=== PATIENT | male | born 1975 | race Caucasian/White ===

== ENCOUNTER 2016-02-11 16:24 | Outpatient (CLI) | payer OTHER | END 2016-02-11 16:25 | disposition home or self-care (01) | DX: M19.071 Primary osteoarthritis, right ankle and foot (principal); M67.472 Ganglion, left ankle and foot ==

== ENCOUNTER 2016-08-09 16:27 | Outpatient (CLI) | payer OTHER ==
--- NOTE | 2016-08-10 18:48 | MRI Report ---
EXAM: RIGHT MIDFOOT MRI WITHOUT CONTRAST EXAM DATE: 08/09/2016 06:28 PM. CLINICAL HISTORY: Right foot pain after jumping over a fence in January 2016. COMPARISON: 02/11/2016. TECHNIQUE: Multiplanar, multisequence T1-weighted and fluid-sensitive sequences of the midfoot withou t contrast. Other: None. FINDINGS: Bones: There is some persistent edema in the medial portion of the navicular. Articular Cartilage: Unremarkable. Ligaments: The visualized intertarsal, intermetatarsal, and tarsometatarsal ligaments are intact. Thi s includes the Lisfranc ligament. The visualized collateral ligaments are intact. Tendons: Some edema surrounds the tibialis posterior tendon insertion on the navicular. Musculature: No edema or fatty atrophy. Other: No effusions. The visualized portion of the tarsal tunnel is unremarkable. No intermetatarsal bursitis. The subcutaneous tissues are unremarkable. IMPRESSION: Edema in the medial portion of the navicular could represent trauma or be secondary to te ndinosis of the distal tibialis posterior tendon. [facility]CUL[facility] Referring Provider Line: [phone] SITE ID: [id number]
== END 2016-08-09 16:28 | disposition home or self-care (01) ==
LOC: DI 16:27
PROVIDERS: ATTEND Orthopaedic Surgery
DX: M79.671 Pain in right foot (principal); R60.0 Localized edema

== ENCOUNTER 2017-07-05 09:09 | Emergency (ER) | payer OTHER ==
[2017-07-05 10:11] LABS: BASOPHILS # (AUTO) 0.1 10^3/uL (0.0-0.1); BASOPHILS % (AUTO) 1.1 %; EOSINOPHILS # (AUTO) 0.2 10^3/uL (0.0-0.7); EOSINOPHILS % (AUTO) 2.7 %; HGB - HEMOGLOBIN 14.4 g/dL (14.0-18.0); LYMPHOCYTES # (AUTO) 1.1 10^3/uL (1.5-3.5); LYMPHOCYTES % (AUTO) 19.4 %; MEAN CORPUSCULAR HEMOGLOBIN 30.4 pg (27.0-31.0); MEAN CORPUSCULAR HGB CONC 34.6 g/dL (32.0-36.0); MEAN CORPUSCULAR VOLUME 87.6 fL (80.0-94.0); MEAN PLATELET VOLUME 7.5 fL (7.4-11.4); MONOCYTES # (AUTO) 0.5 10^3/uL (0.0-1.0); MONOCYTES % (AUTO) 8.6 %; NEUTROPHILS % (AUTO) 68.2 %; PLT - PLATELET COUNT 213 10^3/uL (130-450); RED BLOOD COUNT 4.74 10^6/uL (4.70-6.10); RED CELL DISTRIBUTION WIDTH 13.3 % (12.0-15.0); WHITE BLOOD COUNT 5.9 x10^3/uL (4.8-10.8)
[2017-07-05 10:24] LABS: ALBUMIN 4.2 g/dL (3.2-5.5); ALBUMIN/GLOBULIN RATIO 1.3 (1.0-2.2); BILIRUBIN,TOTAL 0.9 mg/dL (0.2-1.0); CALCIUM 9.1 mg/dL (8.5-10.3); CREATININE 0.7 mg/dL (0.6-1.2); TOTAL PROTEIN 7.5 g/dL (6.7-8.2)
--- NOTE | 2017-07-05 10:45 | XRAY Report ---
EXAM: CHEST RADIOGRAPHY EXAM DATE: 07/05/2017 10:39 AM. CLINICAL HISTORY: Chest pain. COMPARISON: None. TECHNIQUE: 2 views. FINDINGS: Lungs/Pleura: No focal opacities evident. No pleural effusion. No pneumothorax. Normal volumes. Mediastinum: Heart and mediastinal contours are unremarkable. Other: None. IMPRESSION: Normal 2-view chest radiography. [facility] Referring Provider Line: [phone] SITE ID: [id number]
--- NOTE | 2017-07-05 10:45 | XRAY Preliminary Report ---
Exam: XR CHEST 2 VIEW X-RAY IMPRESSION: Normal 2-view chest radiography. [facility] SITE ID: [id number]
--- NOTE | 2017-07-05 11:07 | ED Physician Documentation ---
History of Present Illness - Stated complaint Stated Complaint: CHEST PAIN - Chief complaint Chief Complaint: General - Additonal information Additional information: hx from pt [place] mal;e to ER with CC L ant L shoulder chest pain constant for 2 months not worsened by exertion occ SOA as well no travel or surgery or leg swelling no fhx CAD has not been seen at [facility] for same last night had some rapid palp and inc level of FILM MASKER so came to ER Review of Systems Constitutional: denies: Fever, Chills Cardiac: reports: Chest pain / pressure, Palpitations Respiratory: reports: Dyspnea. denies: Cough GI: denies: Abdominal Pain, Nausea, Vomiting Musculoskeletal: denies: Neck pain, Back pain, Extremity pain, Extremity swelling Endocrine: denies: Easy bruising / bleeding Immunocompromised: denies: Immunocompromised PD PAST MEDICAL HISTORY - Past Medical History Past Medical History: Yes Cardiovascular: None Respiratory: None Endocrine/Autoimmune: None GI: GERD : None HEENT: None Psych: None Musculoskeletal: Other Derm: None - Past Surgical History Past Surgical History: Yes General: Other Ortho: Shoulder arthroplasty HEENT: Tonsil/Adenoidectomy - Present Medications Home Medications: Ambulatory Orders Medication Instructions Recorded Confirmed Sertraline [Zoloft] 25 mg PO .FREQ 11/24/15 HYDROcod/ACETAM 5/325 [[place] 5/325] 1 - 2 ea PO Q6H PRN #7 tablet 12/07/15 diazePAM [Diazepam] 1 tab PO .FREQ PRN 12/07/15 12/07/15 Naproxen 500 mg PO BIDWM PRN #20 tablet 07/05/17 - Allergies Allergies/Adverse Reactions: Allergies Allergy/AdvReac Type Severity Reaction Status Date / Time No Known Drug Allergies Allergy Verified 12/07/15 14:46 - Social History Does the pt smoke?: No Smoking Status: Never smoker Does the pt drink ETOH?: Yes Does the pt have substance abuse?: No - Immunizations Immunizations are current?: Yes - POLST Patient has POLST: No PD ED PE NORMAL - Vitals Vital signs reviewed: Yes - General General: Alert and oriented X 3 - HEENT HEENT: Atraumatic - Neck Neck: Supple, no meningeal sign - Cardiac Cardiac: RRR - Respiratory Respiratory: No respiratory distress, Clear bilaterally - Abdomen Abdomen: Soft, Non tender - Derm Derm: Normal color - Extremities Extremities: No deformity, No edema, No calf tenderness / cord - Neuro Neuro: Alert and oriented X 3 Results - Vitals Vitals: Vital Signs - 24 hr 07/05/17 07/05/17 07/05/17 09:15 11:29 13:16 Temperature 36.7 C Heart Rate 88 76 80 Respiratory 16 14 16 Rate Blood Pressure 143/91 H 125/84 H 129/68 O2 Saturation 96 97 99 Oxygen O2 Source Room air - EKG (time done) 0925 Rate: Rate (enter#) (81) Rhythm: NSR Intervals: Normal LA QRS: Normal Ischemia: Normal ST segments - Labs Labs: Laboratory Tests 07/05/17 07/05/17 07/05/17 10:07 10:07 10:07 WBC 5.9 RBC 4.74 Hgb 14.4 Hct 41.6 L MCV 87.6 MCH 30.4 MCHC 34.6 RDW 13.3 Plt Count 213 MPV 7.5 Neut # 4.0 Lymph # 1.1 L Clinch # 0.5 Eos # 0.2 Baso # 0.1 Absolute Nucleated RBC 0.00 Nucleated RBC % 0.0 Sodium 136 Potassium 4.3 Chloride 101 Carbon Dioxide 26 Anion Gap 9.0 BUN 18 Creatinine 0.7 Estimated GFR (MDRD) 123 Glucose 111 H Calcium 9.1 Total Bilirubin 0.9 AST 31 ALT 49 Alkaline Phosphatase 105 Troponin I < 0.04 Total Protein 7.5 Albumin 4.2 Globulin 3.3 Albumin/Globulin Ratio 1.3 Lipase 23 - Rads (name of study) CTPA Radiology: See rad report (neg) PD MEDICAL DECISION MAKING - ED course ED course: PERC negative in ER - except that pt reports fast palp at home will CTA Departure - Departure Disposition: 01 Home, Self Care Clinical Impression: Chest pain Condition: Good Instructions: ED Chest Pain Atypical [place] Cause Follow-Up: [facility] [Provider Group] Prescriptions: Naproxen 500 mg PO BIDWM PRN #20 tablet PRN Reason: Pain Comments: Your EKG and blood work were reassuring this is not a heart attack The xray and CT scan do not show an aneurysm or blood clot in your lungs - no a collapsed lung or fluid around your heart or lungs. I think it is safe for you to go home but you will need to follow up with [employer] for further testing not available in the ER - I would recommend an ultrasound of your heart (echocardiogram), a wear at home heart monitor and perhaps a stress test. Would recommend to PT or deployment until cleared by [facility]
[2017-07-05] MEDS ORDERED: IOPAMIDOL-300 100 ML VIAL ONE (13:09)
[2017-07-05] MEDS ORDERED: IOPAMIDOL-300 100 ML VIAL IVP ONE (13:41)
--- NOTE | 2017-07-05 13:44 | CT Report ---
EXAM: CT ANGIOGRAM CHEST EXAM DATE: 07/05/2017 01:21 PM. CLINICAL HISTORY: Chest pain. Palpitations. COMPARISON: Radiograph today. TECHNIQUE: Routine helical imaging was performed through the chest in the pulmonary arterial phase. I V Contrast: 60 cc Isovue-300. Reconstructions: Coronal 3-D MIP reconstructions.Sagittal and coronal. In accordance with CT protocol optimization, one or more of the following dose reduction techniques w ere utilized for this exam: automated exposure control, adjustment of mA and/or KV based on patient s ize, or use of iterative reconstructive technique. FINDINGS: Pulmonary Arteries: Diagnostic quality: Adequate through the segmental arteries. No evidence for acute or chronic pulmona ry emboli. Heart: RV/LV is within normal limits. There is no interventricular septal bowing. There is no reflux of contrast material in the IVC. Lungs/Pleura: No consolidation, nodules, or edema. No effusions or pneumothorax. Mediastinum: No lymphadenopathy. Esophagus and thyroid gland are unremarkable. Thoracic Aorta: Unremarkable. No dissection. Upper Abdomen: Mild fatty infiltration of the liver with fatty sparing at the gallbladder fossa. Other: None. IMPRESSION: Normal pulmonary CT angiogram. No pulmonary emboli. [facility] Referring Provider Line: [phone] SITE ID: [id number]
--- NOTE | 2017-07-05 13:44 | CT Preliminary Report ---
Exam: CT CHEST ANGIO (PE) IMPRESSION: Normal pulmonary CT angiogram. No pulmonary emboli. [facility] SITE ID: [id number]
[2017-07-05 14:24] VITALS: BP 113/78
== END 2017-07-05 14:24 | disposition home or self-care (01) ==
LOC: ED 09:09
DX: R07.9 Chest pain, unspecified (principal); R06.00 Dyspnea, unspecified; K21.9 Gastro-esophageal reflux disease without esophagitis
CPT/HCPCS: 36415; 71046; 71275; 80053; 83690; 84484; 85025; 93005; 99283; 99284; Q9967

== ENCOUNTER 2017-09-13 15:53 | Emergency (ER) | payer OTHER ==
[2017-09-13 15:59] VITALS: BP 141/85
--- NOTE | 2017-09-13 19:34 | ED Physician Documentation ---
History of Present Illness - Stated complaint Stated Complaint: WET CAST - Chief complaint Chief Complaint: General - Additonal information Additional information: hx from pt 42 male s.p foot reconstructive surgery recently at [place] has a splint on it got wet dc instructions advise to come to ED for cast change as wet skin may break down and lead to infection Review of Systems Musculoskeletal: reports: Other (cast wet) PD PAST MEDICAL HISTORY - Past Medical History Past Medical History: No Cardiovascular: None Respiratory: None Endocrine/Autoimmune: None GI: GERD : None HEENT: None Psych: None Musculoskeletal: None Derm: None - Past Surgical History Past Surgical History: Yes General: Other Ortho: Shoulder arthroplasty HEENT: Tonsil/Adenoidectomy - Present Medications Home Medications: Ambulatory Orders Medication Instructions Recorded Confirmed Sertraline [Zoloft] 25 mg PO .FREQ 11/24/15 HYDROcod/ACETAM 5/325 [[place] 5/325] 1 - 2 ea PO Q6H PRN #7 tablet 12/07/15 diazePAM [Diazepam] 1 tab PO .FREQ PRN 12/07/15 12/07/15 Naproxen 500 mg PO BIDWM PRN #20 tablet 07/05/17 - Allergies Allergies/Adverse Reactions: Allergies Allergy/AdvReac Type Severity Reaction Status Date / Time No Known Drug Allergies Allergy Verified 09/13/17 15:59 - Social History Does the pt smoke?: No Smoking Status: Never smoker Does the pt drink ETOH?: Yes Does the pt have substance abuse?: No - Immunizations Immunizations are current?: Yes - POLST Patient has POLST: No PD ED PE NORMAL - Vitals Vital signs reviewed: Yes - Extremities Extremities: Other (soggy wet splint removed - appears to be a stirrup splint with large amt web roll, gauze and xeroform, underlying wound s infection) Results - Vitals Vitals: Vital Signs - 24 hr 09/13/17 15:56 Temperature 35.9 C L Heart Rate 89 Respiratory 20 Rate Blood Pressure 141/85 H O2 Saturation 98 Oxygen O2 Source Room air Procedures - Splint (location) RLE Splint applied by: Tech Type of splint: Fiberglass, Short leg, Stirrup, Other (very very well padded) Other: Patient tolerated well, No complications, Neurovascular intact, Crutches provided (already has his own) PD MEDICAL DECISION MAKING - ED course ED course: old splint removed and we replaced witha new one as similar to original as we coulf make it spoke to ortho operations coordinator - no further instruction - rec fup 09/15 as scheduled - Sepsis Event Vital Signs: Vital Signs - 24 hr 09/13/17 15:56 Temperature 35.9 C L Heart Rate 89 Respiratory 20 Rate Blood Pressure 141/85 H O2 Saturation 98 Oxygen O2 Source Room air Departure - Departure Disposition: 01 Home, Self Care Clinical Impression: Aftercare for cast or splint check or change Condition: Good Instructions: ED Splint Care Fiberglass Comments: Follow up with your orthopedic doctor on 09/15 as scheduled
== END 2017-09-13 19:51 | disposition home or self-care (01) ==
LOC: ED 15:53
DX: Z46.89 Encounter for fitting and adjustment of other specified devices (principal); Z98.890 Other specified postprocedural states
CPT/HCPCS: 29515; 99282